=== PATIENT | male | born 1985 | race Caucasian/White ===

== ENCOUNTER 2016-06-22 21:40 | Emergency (ER) | payer OTHER ==
[2016-06-22 22:05] LABS: BASOPHIL# 0.1 X 10^3uL (0.0-0.1); BASOPHILS 0.9 % (0.0-2.0); EOSINOPHILS 0.7 % (0.0-6.0); HEMATOCRIT 55.4 % (42.0-54.0); HEMOGLOBIN 18.9 g/dL (14.0-18.0); LYMPHOCYTES 43.1 % (20.0-40.0); LYMPHOCYTES# 2.7 X 10^3uL (0.8-3.8); MEAN CELL VOLUME 97.4 fL (80.0-100.0); MEAN CORPUSCULAR HEMOGLOBIN 33.2 pg (29.0-35.0); MEAN PLATELET VOLUME 7.5 fL (7.4-10.4); MONOCYTES 9.6 % (2.0-10.0); MONOCYTES# 0.6 X 10^3uL (0.2-1.0); NEUTROPHILS 45.7 % (54.0-75.0); NEUTROPHILS# 2.9 X 10^3uL (2.6-6.7); PLATELET COUNT 334 X 10^3uL (130-440); RED BLOOD COUNT 5.68 X 10^6uL (4.20-6.10); RED CELL DISTRIBUTION WIDTH 12.8 % (11.5-14.5); WHITE BLOOD COUNT 6.3 X 10^3uL (3.9-10.7)
[2016-06-22 22:10] LABS: ALBUMIN 4.8 g/dL (3.5-5.0); ALKALINE PHOSPHATASE 54 U/L (38-126); ALT 114 U/L (21-72); AST 173 U/L (17-59); BILIRUBIN, DIRECT 0.2 mg/dL (0.0-0.4); BILIRUBIN, TOTAL 0.7 mg/dL (0.2-1.3); BLOOD UREA NITROGEN 14 mg/dL (9-20); CALCIUM 8.9 mg/dL (8.4-10.2); CHLORIDE 107 mmol/L (98-107); CREATININE 0.8 mg/dL (0.7-1.3); EST GLOMERULAR FILTRATION RATE > 60 mL/min; GLUCOSE 193 mg/dL (70-100); LIPASE 298 U/L (23-300); MAGNESIUM 2.2 mg/dL (1.6-2.3); POTASSIUM 3.6 mmol/L (3.5-5.1); TOTAL PROTEIN 8.2 g/dL (6.3-8.2)
[2016-06-22 22:14] LABS: SODIUM 151 mmol/L (137-145)
[2016-06-22] MEDS ORDERED: MULTIVITAMINS 10 ML VIAL IV ONE (22:19)
[2016-06-22] MEDS ORDERED: THIAMINE HCL 200 MG/2 ML VIAL ONE (22:19)
[2016-06-22] MEDS ORDERED: MAGNESIUM SULFATE 1 GM/2 ML VIAL ONE (22:19)
[2016-06-22 22:32] LABS: ETHYL ALCOHOL 464 mg/dL (<10)
[2016-06-22 23:01] LABS: URINE APPEARANCE CLEAR; URINE BACTERIA NONE SEEN (<10/hpf); URINE BILIRUBIN NEGATIVE (NEGATIVE); URINE BLOOD 10 Ery/uL (1+) (NEGATIVE); URINE COLOR YELLOW; URINE GLUCOSE NORMAL (NEGATIVE); URINE KETONE NEGATIVE (NEGATIVE); URINE LEUKOCYTE ESTERASE NEGATIVE (NEGATIVE); URINE MUCUS UP TO 25%/lpf (Up to 25%); URINE NITRITE NEGATIVE (NEGATIVE); URINE PH 5.5 (5-7); URINE PROTEIN 100mg/dL (2+) (NEG - TRACE); URINE RBC NONE SEEN (0-5/hpf); URINE SPECIFIC GRAVITY 1.025 (0.001-1.035); URINE SQUAMOUS EPITHELIAL CELL NONE SEEN (<= 15/hpf); URINE UROBILINOGEN 0.2mg/dL (Normal) (NEG-1mg/dL); URINE WBC NONE SEEN (0-4/hpf)
[2016-06-23 01:33] LABS: CALCIUM 7.6 mg/dL (8.4-10.2); POTASSIUM 4.4 mmol/L (3.5-5.1)
[2016-06-23] MEDS ORDERED: LORazepam 1 MG TABLET ONE (03:49)
--- NOTE | 2016-06-23 07:56 | ER NURSING DOCUMENTATION ---
Nurse's Notes [facility] Name:Taz Wallace Age:31 yrs Sex:Male :1985 Arrival Date:06/22/2016 Time:21:40 BedTrauma-A Private MD:Physician, No Diagnosis:Alcohol Abuse;Hypernatremia;Dehydration Presentation: 06/22 21:45 Acuity: ZEUS 2 lb 21:51 Presenting complaint: Father states: Pt was attempting to check into [facility] when he blew over the limit they allow. Pt had fireball and vodka unknown amount prior to check in. Last drink was at 1999. Pt has a history of heroin abuse. Transition of care: [facility]. 21:51 Method Of Arrival: Private Vehicle Triage Assessment: 21:54 General: Appears in no apparent distress, Behavior is cooperative. General: Smells of rh alcohol. Pain: Denies pain. EENT: Oral mucosa is dry. Neuro: Level of Consciousness is awake, alert, obeys commands. Cardiovascular: Capillary refill < 3 seconds Chest pain is denied. Respiratory: Airway is patent Respiratory effort is even, unlabored. GI: Abdomen is non- distended Denies nausea. : No deficits noted. Derm: Skin is intact, is healthy with good turgor, Skin is pink, warm & dry. Historical: - Allergies: No known drug Allergies; - Home Meds: 1. suboxone - PMHx: ALCOHOLISM; ANXIETY; Hypertension; - PSHx: Knee surgery; Cochlear implant; - Tetanus: unknown. - Ebola Screening: : Patient negative for fever greater than or equal to 101.5 degrees Fahrenheit, and additional compatible Ebola Virus Disease symptoms. - Immunization history: Flu Vaccine unknown. - Social history: Smoking status: Patient uses tobacco products, current every day smoker. Patient uses alcohol street drugs, heroin, marijuana. Screenin:56 Infectious Disease Risk None. Abuse screen: Denies threats or abuse. Denies injuries rh from another. Nutritional screening: No deficits noted. Suicide Risk Assessment: Suicidal Thinking Present - No ( 0 points). Assessment: 21:56 See Triage Assessment done by same RN. 06/23 01:15 Reassessment: pt continues to sleep. resp easy. will continue to monitor. 03:23 Reassessment: spoke with staff at [facility]. Pt ready to go back but no transportation is lb available until 6 AM. 07:18 Reassessment: Called [facility] and spoke to Dotty with pt update. Dotty reports that tg they will not be able to pick pt up until 814. Pt notified. . 07:34 Reassessment: Pt requested to go outside to smoke. Pt instructed on how to ring tg doorbell to be let back in. . 07:44 Reassessment: Pt back in room, breakfast provided. tg Vital Signs: 06/22 21:55 BP 135 / 87; Pulse 94; Resp 18; Temp 98.3(TE); Pulse Ox 97% on 2 lpm NC; Pain 0/10; rh 06/23 01:18 BP 131 / 90; Pulse 87; Resp 16; Pulse Ox 91% on R/A; lb 03:16 BP 131 / 94 (auto/); tg 03:16 Pulse 110; Resp 16; Pulse Ox 96% on R/A; tg 03:23 BP 131 / 94; Pulse 72; Resp 20; Pulse Ox 94% on R/A; lb ED Course: 06/22 21:41 Patient arrived in ED. em2 21:41 Physician, No is Private Physician. em2 21:45 Krystle Villanueva is Primary Nurse. lb 21:45 Triage completed. lb 21:47 Trip Turner MD is Attending Physician. jm 21:48 Inserted peripheral IV: 20 gauge in left antecubital area and blood collected. Oxygen rh Oxygen administration via nasal cannula @ 2L/min. 21:50 Notified ED Physician of patient's arrival and chief complaint. Dr. Turner notified. rh 21:50 quality assurance monitor on. Pulse ox on. NIBP on. rh 21:56 Valuables Remains with patient Patient has correct armband on for positive rh identification. Placed in gown. Bed in low position. Call light in reach. Side rails up X2. Administered Medications: 21:51 Drug: NS 0.9% 1000 ml; Route: IV; Rate: bolus; Site: left antecubital; rh 22:45 Follow up: IV Status: Completed infusion; IV Intake: 1000ml rh 22:12 Drug: Banana Bag - (NS 0.9% 1000 ml, folic acid 600 mcg, Thiamine 100 mg, Multivitamin rh 10 ml, Magnesium Sulfate 1 grams); Route: IV; Rate: calculated rate; Site: left antecubital; 22:50 Follow up: IV Status: Completed infusion; IV Intake: 1000ml rh 06/23 03:39 Drug: Ativan 1 mg; Route: PO; lb 04:55 Follow up: Response: Anxiety decreased lb Intake: 06/22 22:45 IV: 1000ml; Total: 1000ml. rh 22:50 IV: 1000ml; Total: 2000ml. rh Output: 22:50 Urine: 800ml (Voided); Total: 800ml. rh Outcome: 23:03 Discharge ordered by . jennifer 06/23 07:06 Discharged to [facility] tg Condition: stable Discharge Assessment: Patient awake and alert. Anxious, pacing, cooperative, pleasant Instructed on discharge instructions, follow up and referral plans. 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 07:55 Patient left the ED. tg Signatures: Melvin Chua, RN Trip Townsend MD MD jm Meinking-cesilia, Renan em2 Trice Garner caitlin roy Lynda lb
--- NOTE | 2016-06-23 07:56 | ER PHYSICIAN DOCUMENTATION ---
Physician Documentation [facility] Name:Taz Wallace Age:31 yrs Sex:Male :1985 Arrival Date:06/22/2016 Time:21:40 BedTrauma-A Private MD:Physician, No ED Trip Gaviria Disposition: 06/22/16 23:03 Discharged to [facility]. Impression: Alcohol Abuse, Hypernatremia, Dehydration. - Condition is Fair. - Discharge Instructions: DEHYDRATION (7y-Adult), Abuse, Alcohol - ALCOHOL ABUSE. - Medical Reconciliation form form. - Follow up: Private Physician; When: Upon discharge from the Emergency Department; Reason: Continuance of care. - Problem is an ongoing problem. - Symptoms have improved. HPI: 06/22 22:00 This 31 yrs old Male presents to ER via Private Vehicle with complaints of jm ETOH Abuse. 22:00 The patient presents to the emergency department with a history of substance abuse, jm Type: Pt here b/c's he's had drank too much ETOH on the way up to [facility]. . Onset: The symptom(s)/episode began/occurred today. Associated signs and symptoms: The patient has no apparent associated signs or symptoms. The patient has not experienced similar symptoms in the past. The patient has not recently seen a physician. Historical: - Allergies: No known drug Allergies; - Home Meds: 1. suboxone - PMHx: ALCOHOLISM; ANXIETY; Hypertension; - PSHx: Knee surgery; Cochlear implant; - Tetanus: unknown. - Ebola Screening: : Patient negative for fever greater than or equal to 101.5 degrees Fahrenheit, and additional compatible Ebola Virus Disease symptoms. - Immunization history: Flu Vaccine unknown. - Social history: Smoking status: Patient uses tobacco products, current every day smoker. Patient uses alcohol street drugs, heroin, marijuana. ROS: 22:00 Constitutional: Negative for fatigue, fever. jm 22:00 Respiratory: Negative for cough, shortness of breath. 22:00 Abdomen/GI: Negative for abdominal pain, nausea, vomiting, diarrhea. 22:00 Neuro: Positive for tremor. 22:00 Psych: Positive for drug dependence. Exam: 22:00 Constitutional: The patient appears alert, awake, comfortable. 22:00 Cardiovascular: Rate: normal, Rhythm: regular. 22:00 Respiratory: Respirations: normal, Breath sounds: are normal. 22:00 Neuro: Mentation: is normal, Memory: is normal. 22:00 Psych: Behavior/mood is pleasant, cooperative, Affect is calm. Vital Signs: 21:55 BP 135 / 87; Pulse 94; Resp 18; Temp 98.3(TE); Pulse Ox 97% on 2 lpm NC; Pain 0/10; rh 06/23 01:18 BP 131 / 90; Pulse 87; Resp 16; Pulse Ox 91% on R/A; lb 03:16 BP 131 / 94 (auto/); tg 03:16 Pulse 110; Resp 16; Pulse Ox 96% on R/A; tg 03:23 BP 131 / 94; Pulse 72; Resp 20; Pulse Ox 94% on R/A; lb MDM: 06/22 21:47 Patient medically screened. jm 23:00 Differential diagnosis: drug withdrawal. Data reviewed: vital signs, nurses notes, lab jm test result(s), and as a result, I will continue to observe the patient. Counseling: I had a detailed discussion with the patient and/or guardian regarding: the historical points, exam findings, and any diagnostic results supporting the discharge/admit diagnosis, lab results, the need for outpatient follow up, at [facility]. . 06/22 22:10 Order name: CBC AUTO DIF, MDIF/RMOR IF IND; Complete Time: 22:40 EDMS 06/22 22:14 Order name: BASIC METABOLIC PANEL; Complete Time: 22:40 EDMS 06/22 22:14 Order name: MAGNESIUM; Complete Time: 22:40 EDMS 06/22 22:14 Order name: HEPATIC PANEL; Complete Time: 22:40 EDMS 06/22 22:14 Order name: LIPASE; Complete Time: 22:40 EDMS 06/22 22:36 Order name: ETHYL ALCOHOL; Complete Time: 22:40 EDMS 06/22 23:06 Order name: UA W/ MICRO -CULTURE IF IND; Complete Time: 06:18 EDMS 06/22 23:06 Order name: URINE DRUG SCREEN, QUAL; Complete Time: 06:18 EDMS 06/23 01:48 Order name: BASIC METABOLIC PANEL; Complete Time: 06:18 EDMS 06/23 02:08 Order name: ETHYL ALCOHOL; Complete Time: 06:18 EDMS 06/22 21:49 Order name: I & O; Complete Time: 21:51 06/22 21:49 Order name: NPO; Complete Time: :51 06/22 21:49 Order name: Pulse Ox Continuous; Complete Time: : 06/22 21:56 Order name: Iv Saline Lock; Complete Time: :56 rh Dispensed Medications: 21:51 Drug: NS 0.9% 1000 ml; Route: IV; Rate: bolus; Site: left antecubital; rh 22:45 Follow up: IV Status: Completed infusion; IV Intake: 1000ml rh 22:12 Drug: Banana Bag - (NS 0.9% 1000 ml, folic acid 600 mcg, Thiamine 100 mg, Multivitamin rh 10 ml, Magnesium Sulfate 1 grams); Route: IV; Rate: calculated rate; Site: left antecubital; 22:50 Follow up: IV Status: Completed infusion; IV Intake: 1000ml 06/23 03:39 Drug: Ativan 1 mg; Route: PO; lb 04:55 Follow up: Response: Anxiety decreased lb Signatures: Melvin Chua RN RN tg Meyer, John, MD MD jm Hofsess, Rachel Krystle Villanueva lb
== END 2016-06-23 07:56 ==
LOC: ER 21:40
DX: F10.229 Alcohol dependence with intoxication, unspecified (principal); E86.0 Dehydration; E87.0 Hyperosmolality and hypernatremia; F13.10 Sedative, hypnotic or anxiolytic abuse, uncomplicated; F11.10 Opioid abuse, uncomplicated; I10 Essential (primary) hypertension; Z79.899 Other long term (current) drug therapy
CPT/HCPCS: 36415; 80048; 80076; 80305; 80320; 81001; 83690; 83735; 85025; 96365; 99285; J3475